=== PATIENT | male | born 1955 | race Hispanic/Latino ===

== ENCOUNTER 2021-07-23 20:47 | Emergency (ER) | payer MEDICARE ==
[2021-07-23 21:05] VITALS: BP 162/75
[2021-07-23 21:25] LABS: Basophils # (Auto) 0.1 K/mm3 (0.0-0.1); Basophils % (Auto) 0.8 % (0.0-1.8); Eosinophils # (Auto) 0.2 K/mm3 (0.0-0.4); Eosinophils % (Auto) 3.1 % (0.0-4.3); Hematocrit 45.9 % (35.5-45.6); Hemoglobin 14.9 gm/dl (11.8-15.2); Lymphocytes # (Auto) 1.8 K/mm3 (1.2-5.4); Lymphocytes % (Auto) 26.7 % (13.4-35.0); Mean Corpuscular HGB Conc 33 % (32-34); Mean Corpuscular Volume 89 fl (84-94); Monocytes # (Auto) 0.6 K/mm3 (0.0-0.8); Monocytes % (Auto) 9.4 % (0.0-7.3); Platelet Count 235 K/mm3 (140-440); Red Blood Count 5.16 M/mm3 (3.65-5.03); Red Cell Distribution Width 13.6 % (13.2-15.2)
--- NOTE | 2021-07-23 21:37 | XRay Report ---
CHEST 2 VIEWS INDICATION / CLINICAL INFORMATION: Chest pain. COMPARISON: None available. FINDINGS: SUPPORT DEVICES: None. HEART / MEDIASTINUM: No significant abnormality. LUNGS / PLEURA: No significant pulmonary or pleural abnormality. No pneumothorax. ADDITIONAL FINDINGS: No significant additional findings. IMPRESSION: 1. No acute findings. Signer Name: Wayne Harmon MD Signed: 07/23/2021 9:33 PM Workstation Name: [id number]
[2021-07-23 21:47] LABS: Alanine Aminotransferase 25 units/L (7-56); Albumin 4.4 g/dL (3.9-5); BUN/Creatinine Ratio 28; Blood Urea Nitrogen 28 mg/dL (9-20); Calcium 9.4 mg/dL (8.4-10.2); Hemolysis Index 10
[2021-07-24] MEDS ORDERED: ASPIRIN 325 MG TAB PO ONE (01:54)
--- NOTE | 2021-07-24 01:59 | Emergency Department Report ---
HPI - General Chief Complaint: Chest Pain Time Seen by Provider: 07/24/21 01:42 - [facility] HPI: MSE 7 The patient is a 65-year-old male present with chief complaint of chest pain. The patient states he drove here from [facility] this morning. The pat ient states since midmorning he has had intermittent left-sided chest pain is been dull in nature and associated with diaphoresis. Patient denies shortness of breath or nausea/vomiting. Patient denies pleurisy or cough. Patient denies history of fever. Patient currently gives his chest pain a score of 2/10. Patient states he had a normal stress test 3 years ago but has never had a cardiac catheterization ED Past Medical Hx - Past Medical History Previous Medical History?: Yes Hx Hypertension: Yes Additional medical history: High Cholesterol - Surgical History Past Surgical History?: Yes Additional Surgical History: Right ankle tendon repair - Family History Family history: no significant - Social History Smoking Status: Never Smoker Substance Use Type: None (Denies illicit drug use), Alcohol (Occasional) ED Review of Systems ROS: Stated complaint: CHEST PAIN Other details as noted in HPI Constitutional: diaphoresis Eyes: denies: eye pain ENT: denies: throat pain Respiratory: denies: cough, shortness of breath Cardiovascular: chest pain Endocrine: no symptoms reported Gastrointestinal: denies: nausea, vomiting Genitourinary: denies: dysuria Musculoskeletal: denies: back pain Neurological: denies: headache Physical Exam - Physical Exam Vital Signs: Vital Signs 07/23/21 21:04 Temperature 97.9 F Pulse Rate 91 H Respiratory 20 Rate Blood Pressure 162/75 [Right] O2 Sat by Pulse 97 Oximetry Physical Exam: GENERAL: The patient is well-developed well-nourished male lying on stretcher not appearing to be in acute distress. [] HEENT: Normocephalic. Atraumatic. Extraocular motions are intact. Patient has moist mucous membranes. NECK: Supple. Trachea midline CHEST/LUNGS: Clear to auscultation. There is no respiratory distress noted. HEART/CARDIOVASCULAR: Regular. There is no tachycardia. There is no gallop rub or murmur. ABDOMEN: Abdomen is soft, nontender. Patient has normal bowel sounds. There is no abdominal distention. SKIN: There is no rash. There is no edema. There is no diaphoresis. NEURO: The patient is awake, alert, and oriented. The patient is cooperative. The patient has no focal neurologic deficits. The patient has normal speech. GCS 15 MUSCULOSKELETAL: There is no evidence of acute injury. ED Course Vital Signs 07/23/21 21:04 Temperature 97.9 F Pulse Rate 91 H Respiratory 20 Rate Blood Pressure 162/75 [Right] O2 Sat by Pulse 97 Oximetry ED Medical Decision Making - Lab Data Result diagrams: 07/23/21 21:14 07/23/21 21:14 Laboratory Tests 07/23/21 07/23/21 07/24/21 21:14 21:14 00:47 WBC 6.9 RBC 5.16 H Hgb 14.9 Hct 45.9 H MCV 89 MCH 29 MCHC 33 RDW 13.6 Plt Count 235 Lymph % (Auto) 26.7 [place] % (Auto) 9.4 H Eos % (Auto) 3.1 Baso % (Auto) 0.8 Lymph # (Auto) 1.8 [place] # (Auto) 0.6 Eos # (Auto) 0.2 Baso # (Auto) 0.1 Seg Neutrophils % 60.0 Seg Neutrophils # 4.1 Sodium 141 Potassium 4.1 Chloride 103.4 Carbon Dioxide 24 Anion Gap 18 BUN 28 H Creatinine 1.0 Estimated GFR > 60 BUN/Creatinine Ratio 28 Glucose 123 H Calcium 9.4 Total Bilirubin 0.20 AST 18 ALT 25 Alkaline Phosphatase 67 Troponin T < 0.010 < 0.010 Total Protein 7.2 Albumin 4.4 Albumin/Globulin Ratio 1.6 - EKG Data -: EKG Interpreted by Me EKG shows normal: sinus rhythm Rate: normal - EKG Data When compared to previous EKG there are: previous EKG unavailable Interpretation: nonspecific ST-T wave sanford (T wave inversion in lead aVL) - Radiology Data Radiology results: report reviewed (Chest x-ray, CT chest), image reviewed (Chest x-ray, CT chest) interpreted by me: Chest x-ray-no definite focal infiltrates, no pneumothorax [facility] [address] [place] [address] XRay Report Signed Patient: ROSELINE INGRAM MR#: [id number] : 1955 Acct:[id number] Age/Sex: 65 / M ADM Date: 07/23/21 Loc: ED Attending Dr: Ordering Physician: ED DOC, Date of Service: 07/23/21 Procedure(s): XR chest routine 2V Accession Number(s): [id number] cc: ANDREA GOMEZ MD Fluoro Time In Minutes: CHEST 2 VIEWS INDICATION / CLINICAL INFORMATION: Chest pain. COMPARISON: None available. FINDINGS: SUPPORT DEVICES: None. HEART / MEDIASTINUM: No significant abnormality. LUNGS / PLEURA: No significant pulmonary or pleural abnormality. No pneumothorax. ADDITIONAL FINDINGS: No significant additional findings. IMPRESSION: 1. No acute findings. Signer Name: Wayne Harmon MD Signed: 07/23/2021 9:33 PM Workstation Name: [id number] Transcribed By: SB Dictated By: WAYNE HARMON MD Electronically Authenticated By: WAYNE HARMON MD Signed Date/Time: 07/23/212132 DD/ 31 TD/TT: Print Cancel [facility] [address] [place] [address] Cat Scan Report Signed Patient: ROSELINE INGRAM MR#: [id number] : 1955 Acct:[id number] Age/Sex: 65 / M ADM Date: 07/23/21 Loc: ED Attending Dr: Ordering Physician: RAUL CASTILLO MD Date of Service: 07/24/21 Procedure(s): CT angio chest Accession Number(s): [id number] cc: RAUL CASTILLO MD CTA CHEST WITH CONTRAST INDICATION / CLINICAL INFORMATION: Left chest pain, [id number] 100 ML. TECHNIQUE: Axial CT images were obtained through the chest after injection of IV contrast. 3 plane MIP and/or 3D reconstructions were produced. All CT scans at this location are performed using CT dose reduction for ALARA by means of automated exposure control. COMPARISON: None available. FINDINGS: The pulmonary arteries are patent without filling defect or evidence for PTE. No focal consolidation pleural effusion or pneumothorax. Right renal cyst is identified. ADDITIONAL FINDINGS: None. UPPER ABDOMEN: No acute findings. SKELETAL STRUCTURES: No significant osseous abnormality. IMPRESSION: 1. No CT evidence for pulmonary embolism. 2. No acute findings. Signer Name: Heraclio Nuñez MD Signed: 07/24/2021 3:26 AM Workstation Name: [id number] Transcribed By: CW Dictated By: NNEKA NUÑEZ MD Electronically Authenticated By: NNEKA NUÑEZ MD Signed Date/Time: 07/24/21325 DD/ 4 TD/TT: Print Cancel - Medical Decision Making I discussed with the patient my concern for his chest pain being of cardiac origin. I explained that an CA is not ruled out his current lab work that I recommend admission to the hospital for further observation. Patient verbalized understanding of increased risk of increased morbidity and/or mortality. Patient states he would like to leave the hospital AGAINST MEDICAL ADVICE. Patient told to return to the hospital should he change his mind. - Differential Diagnosis ACS, PE, pericarditis, GERD, costochondritis Critical care attestation.: If time is entered above; I have spent that time in minutes in the direct care of this critically ill patient, excluding procedure time. ED Disposition Clinical Impression: Chest pain Disposition: LEFT AGAINST MEDICAL ADVICE Is pt being admited?: No Does the pt Need Aspirin: No Condition: Undetermined Time of Disposition: 03:35 (Patient leaving AMA) Heart Score - HEART Score History: Moderately suspicious EKG: Non-specific Age: > 65 Risk factors: 1-2 risk factors Troponin: < normal limit HEART Score: 5 - EKG Read Time Time EKG Completed: 20:53 EKG Read Time: 21:01
--- NOTE | 2021-07-24 03:30 | Cat Scan Report ---
CTA CHEST WITH CONTRAST INDICATION / CLINICAL INFORMATION: Left chest pain, [id number] 100 ML. TECHNIQUE: Axial CT images were obtained through the chest after injection of IV contrast. 3 plane IL P and/or 3D reconstructions were produced. All CT scans at this location are performed using CT dose reduction for ALARA by means of automated exposure control. COMPARISON: None available. FINDINGS: The pulmonary arteries are patent without filling defect or evidence for PTE. No focal consolidation pleural effusion or pneumothorax. Right renal cyst is identified. ADDITIONAL FINDINGS: None. UPPER ABDOMEN: No acute findings. SKELETAL STRUCTURES: No significant osseous abnormality. IMPRESSION: 1. No CT evidence for pulmonary embolism. 2. No acute findings. Signer Name: Heraclio Nuñez MD Signed: 07/24/2021 3:26 AM Workstation Name: [id number]
--- NOTE | 2021-07-24 08:52 | Electrocardiograph Report ---
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
== END 2021-07-24 03:37 | disposition left against medical advice (07) ==
LOC: ED 20:47
DX: R07.9 Chest pain, unspecified (principal); I10 Essential (primary) hypertension; Z98.890 Other specified postprocedural states
CPT/HCPCS: 36415; 71046; 71275; 80053; 84484; 85025; 93005; 93010; 99284; Q9967